=== PATIENT | female | born 1980 | race Caucasian/White ===

== ENCOUNTER 2020-08-18 07:50 | Emergency (ER) | payer OTHER ==
[~2020-08-18] VITALS: Ht 170.2 cm; Wt 133.8 kg
[2020-08-18] MEDS ORDERED: HYDROCODON-ACE1 EAC7 PO (08:10)
[2020-08-18 08:21] VITALS: BP 159/88
== END 2020-08-18 08:21 | disposition home or self-care (01) ==
LOC: M.ERS 07:50
DX: S86.811A Strain of other muscle(s) and tendon(s) at lower leg level, right leg, initial encounter (principal); X50.9XXA Other and unspecified overexertion or strenuous movements or postures, initial encounter; Y93.41 Activity, dancing; Y92.89 Other specified places as the place of occurrence of the external cause; Y99.8 Other external cause status